=== PATIENT | female | born 1940 | race Caucasian/White ===

== ENCOUNTER 2023-01-01 13:41 | Emergency (ER) | payer OTHER ==
[~2023-01-01] VITALS: Ht 147.3 cm; Wt 81.6 kg
[2023-01-01 15:14] VITALS: BP_SYST 154
--- NOTE | 2023-01-01 15:15 | NUR ---
Placed in room 03 . Placed on environmental monitoring specialist, blood pressure machine and pulse oximeter. To gown for exam. Side rails up. Report given to JAYESH MCNAMARA
--- NOTE | 2023-01-01 15:18 | NUR ---
PT PLACED ON MONITOR, B/P, PULSE OX
--- NOTE | 2023-01-01 16:03 | NUR ---
ERMD AT BEDSIDE AT THIS TIME
[2023-01-01 16:54] LABS: BASOPHILS % (AUTO) 0.8 % (0.0-2.0); EOSINOPHILS # (AUTO) 0.1 K/uL (0.0-0.4); EOSINOPHILS % (AUTO) 1.4 % (0.0-4.0); HEMATOCRIT 37.3 % (36-48); HEMOGLOBIN 12.5 g/dL (12.0-16.0); LYMPHOCYTES # (AUTO) 1.1 K/uL (1.0-5.5); LYMPHOCYTES % (AUTO) 28.1 % (20.5-51.5); MEAN CORPUSCULAR HEMOGLOBIN 29 pg (27-31); MEAN CORPUSCULAR HGB CONC 33 % (32-36); MEAN CORPUSCULAR VOLUME 87 fL (79.0-98.0); MONOCYTES # (AUTO) 0.5 K/uL (0.0-1.0); MONOCYTES % (AUTO) 13.7 % (1.7-9.3); NEUTROPHILS # (AUTO) 2.2 K/uL (1.8-7.7); PLATELET COUNT (AUTO) 191 K/uL (130-430); RED BLOOD CELL COUNT(AUTO) 4.28 MIL/uL (4.2-6.2); RED CELL DISTRIBUTION WIDTH 14.6 % (9.0-15.0); WHITE BLOOD COUNT (AUTO) 3.9 K/uL (4.8-10.8)
[2023-01-01 17:08] LABS: ANION GAP 7 (5-15); CALCIUM 9.5 mg/dL (8.4-11.0); CHLORIDE 102 mmol/L (98-107); CREATININE 0.78 mg/dL (0.55-1.30); GLUCOSE 97 mg/dL (70-99); UREA NITROGEN, BLOOD 10 mg/dL (8-21)
[2023-01-01 17:23] LABS: ALANINE AMINOTRANSFERASE 35 U/L (12-78); ASPARTATE AMINOTRANSFERASE 24 U/L (10-37); TOTAL BILIRUBIN 0.3 mg/dL (0.0-1.0)
--- NOTE | 2023-01-01 17:43 | NUR ---
Patient given written and verbal discharge instructions and verbalizes understanding. ER MD discussed with patient the results and treatment provided. Patient in stable condition. Rx of given. Patient educated on pain management and to follow up with PMD. Pain Scale []. Opportunity for questions provided and answered. Medication side effect fact sheet provided.
== END 2023-01-01 17:42 | disposition home or self-care (01) ==
LOC: SED 13:41
DX: R10.32 Left lower quadrant pain (principal); Z88.2 Allergy status to sulfonamides; Z88.5 Allergy status to narcotic agent; Z79.899 Other long term (current) drug therapy
CPT/HCPCS: 36415; 76376; 80053; 83605; 85025; 87040; 99284